=== PATIENT | male | born 1950 | race Caucasian/White ===

== ENCOUNTER 2023-06-01 13:20 | Emergency (ER) | payer MEDICARE ==
[2023-06-01] MEDS ORDERED: Sodium Chloride 0.9% 10 ML Syringe FLUSH PRN (13:26)
[2023-06-01] MEDS ORDERED: LORazepam 2 MG/ML SDV IVPUSH ONE (13:26)
[2023-06-01] MEDS ORDERED: Ondansetron 4 MG/2 ML SDV IVPUSH ONE (13:26)
[2023-06-01] MEDS ORDERED: HYDROmorphone 0.5 MG/0.5 ML Syringe IVPUSH ONE ×2 (13:26→14:24)
[2023-06-01] MEDS ORDERED: Naloxone 0.4 MG/ML SDV IVPUSH PRN (13:26)
[2023-06-01] MEDS ORDERED: Sodium Chloride 0.9% 1,000 ML IV SCH (13:30)
[2023-06-01] MEDS ORDERED: HYDROmorphone 0.5 MG/0.5 ML Syringe IM ONE (14:13)
[2023-06-01] MEDS ORDERED: Lidocaine 1% with EPINEPHrine 1:100,000 50 ML MDV INFILT STA (15:28)
[2023-06-01] MEDS ORDERED: Propofol 200 MG/20 ML SDV ONE (15:36)
[2023-06-01] MEDS ORDERED: Diphtheria,Pertussis(Acell),Tetanus Vaccine 0.5 ML Syringe IM ONE (16:14)
[2023-06-01] MEDS ORDERED: Bacitracin Oint 1 GM U/D Packet TOP ONE (16:14)
== END 2023-06-01 16:45 | disposition home or self-care (01) ==
LOC: JP.ED 13:20
DX: S42.251A Displaced fracture of greater tuberosity of right humerus, initial encounter for closed fracture (principal); S51.011A Laceration without foreign body of right elbow, initial encounter; Z23 Encounter for immunization; Z88.0 Allergy status to penicillin; W18.30XA Fall on same level, unspecified, initial encounter; Y92.89 Other specified places as the place of occurrence of the external cause; Y93.73 Activity, racquet and hand sports
CPT/HCPCS: 12001; 23650; 73020; 73030; 73070; 90471; 90715; 96374; 96375; 96376; 99284; J1170; J2060; J2405; J2704; J7030